=== PATIENT | female | born 1950 | race Caucasian/White ===

== ENCOUNTER 2017-08-15 07:33 | Day surgery (SDC) | payer BC ==
[2017-08-12 11:53] LABS: BASOPHILS % (AUTO) 1.2 % (0.0-5.0); EOSINOPHILS % (AUTO) 3.9 % (0.0-8.0); HEMATOCRIT 35.5 % (36-48); LYMPHOCYTES % (AUTO) 29.5 % (21.0-51.0); MEAN CORPUSCULAR HEMOGLOBIN 29.7 pg (27.0-33.0); MEAN CORPUSCULAR HGB CONC 33.3 g/dL (32.0-36.0); MEAN CORPUSCULAR VOLUME 89.3 fL (79-99); MONOCYTES % (AUTO) 9.4 % (3.0-13.0); PLATELET COUNT (AUTO) 243 K/uL (130-400); RED BLOOD CELL COUNT(AUTO) 3.97 MIL/uL (4.00-5.50); RED CELL DISTRIBUTION WIDTH 13.1 % (11.0-15.5); WHITE BLOOD COUNT (AUTO) 4.9 K/uL (4.8-10.8)
[2017-08-12 11:58] LABS: CREATININE 1.9 mg/dL (0.5-1.5); POTASSIUM 5.5 mmol/L (3.5-5.1)
[2017-08-12 12:01] LABS: APPEARANCE,URINE Clear (CLEAR); BILIRUBIN,URINE Negative (NEGATIVE); COLOR,URINE Yellow (YELLOW); GLUCOSE, URINE (UA) Negative (NEGATIVE); KETONES,URINE Negative (NEGATIVE); LEUKOCYTE ESTERASE ,URINE Trace (NEGATIVE); NITRATE,URINE Negative (NEGATIVE); OCCULT BLOOD,URINE Large (NEGATIVE); PROTEIN,URINE POS 1+ (NEGATIVE); UROBILINOGEN,URINE 0.2 mg/dL (0.2-1.0)
[2017-08-12 12:07] VITALS: BP 156/72
[2017-08-12 12:14] LABS: INR 0.95 (0.85-1.15)
[2017-08-12 12:22] LABS: BACTERIA,URINE Rare /HPF (None Seen); RBC,URINE 51-100 /HPF (0-1); SQUAMOUS EPITHELIAL CELL,UR Rare /HPF (0-2)
[~2017-08-15] VITALS: Ht 154.9 cm; Wt 72.8 kg
[2017-08-15] VITALS (16 sets, daily range): BP systolic 108–157; BP diastolic 56–92
[~2017-08-15 07:33] MED LIST: ASPI81TA40 PO; ATOR20TA65 PO; CALC0.253 PO; CHOL20004 PO; LISI2.5T2 PO
[2017-08-15 08:40] LABS: CREATININE 2.1 mg/dL (0.5-1.5); POTASSIUM 4.6 mmol/L (3.5-5.1)
[2017-08-15] MEDS ORDERED: LACTATED RINGERS 1000ML 1,000 ML IV ONE (08:40)
[2017-08-15] MEDS ORDERED: GENTAMICIN 80 MG/NS 100 ML PB 100 ML IV ONE (08:40)
[2017-08-15] MEDS ORDERED: CEFTRIAXONE SODIUM 1 GM ONE (08:40)
[2017-08-15] MEDS ORDERED: SODIUM CHLORIDE 0.9% 1000ML 1,000 ML IV ONE (09:07)
[2017-08-15] MEDS ORDERED: ISOVUE-370 50ML VIAL IV ONE (10:18)
[2017-08-15] MEDS ORDERED: DEXAMETHASONE SOD PHOSPHATE 10MG/ML 1ML VIAL ONE (11:42)
[2017-08-15] MEDS ORDERED: GLYCOPYRROLATE 0.2 MG/ML 5 ML VIAL ONE (11:42)
[2017-08-15] MEDS ORDERED: LIDOCAINE PF 2% 5ML ABBOJECT ONE (11:42)
[2017-08-15] MEDS ORDERED: PROPOFOL 10 MG/ML 20ML VIAL IV ONE (11:42)
[2017-08-15] MEDS ORDERED: MIDAZOLAM HCL 1 MG/ML 2ML VIAL ONE (11:42)
[2017-08-15] MEDS ORDERED: FENTANYL CITRATE PF 50 MCG/1 ML 2ML VIAL ONE (11:44)
[2017-08-15] MEDS ORDERED: MEPERIDINE-PF 25 MG/ML SYG ONE (13:15)
== END 2017-08-15 15:26 | disposition home or self-care (01) ==
LOC: DAH 07:33 → SUH 07:33
PROVIDERS: ATTEND Urology
DX: C67.5 Malignant neoplasm of bladder neck (principal); N13.39 Other hydronephrosis; E11.9 Type 2 diabetes mellitus without complications; E78.5 Hyperlipidemia, unspecified; E66.9 Obesity, unspecified; Z88.5 Allergy status to narcotic agent
CPT/HCPCS: 36415 ×2; 52332; 52354; 71045; 74420; 80048 ×2; 81001; 82948 ×2; 85025; 85610; 85730; 87088; 88305; 93005; A4218; A4354; A4358; A4510; C1758; C1769; C1894; C2617; J0696; J1100; J1580; J2001; J2175; J2250; J2704; J3010; J3490; J7030 ×2; J7120; Q9967

== ENCOUNTER → 2018-08-07 | Outpatient (CLI) | payer MEDICARE | END | disposition home or self-care (01) | LOC: OIH 09:46 | PROVIDERS: ATTEND Urology | DX: K57.30 Diverticulosis of large intestine without perforation or abscess without bleeding (principal); K46.9 Unspecified abdominal hernia without obstruction or gangrene; N32.89 Other specified disorders of bladder; Z90.49 Acquired absence of other specified parts of digestive tract | CPT/HCPCS: 74176 ==

== ENCOUNTER 2018-08-14 08:42 | Day surgery (SDC) | payer MEDICARE ==
[2018-08-12 15:45] VITALS: BP 167/82
[2018-08-12 15:52] LABS: BASOPHILS % (AUTO) 0.7 % (0.0-5.0); EOSINOPHILS % (AUTO) 2.7 % (0.0-8.0); HEMATOCRIT 34.6 % (36-48); LYMPHOCYTES % (AUTO) 17.3 % (21.0-51.0); MEAN CORPUSCULAR HEMOGLOBIN 29.9 pg (27.0-33.0); MEAN CORPUSCULAR HGB CONC 33.2 g/dL (32.0-36.0); MEAN CORPUSCULAR VOLUME 90.2 fL (79-99); MONOCYTES % (AUTO) 7.5 % (3.0-13.0); NEUTROPHILS % (AUTO) 71.8 % (40.0-77.0); PLATELET COUNT (AUTO) 281 K/uL (130-400); RED BLOOD CELL COUNT(AUTO) 3.84 MIL/uL (4.00-5.50); RED CELL DISTRIBUTION WIDTH 12.7 % (11.0-15.5); WHITE BLOOD COUNT (AUTO) 8.3 K/uL (4.8-10.8)
[2018-08-12 15:59] LABS: APPEARANCE,URINE Clear (CLEAR); BILIRUBIN,URINE Negative (NEGATIVE); COLOR,URINE Yellow (YELLOW); GLUCOSE, URINE (UA) Negative (NEGATIVE); KETONES,URINE Negative (NEGATIVE); LEUKOCYTE ESTERASE ,URINE Large (NEGATIVE); NITRATE,URINE Negative (NEGATIVE); OCCULT BLOOD,URINE Moderate (NEGATIVE); PH,URINE 5.5 (5.0-8.0); PROTEIN,URINE POS 2+ mg/dL (NEGATIVE); UROBILINOGEN,URINE 0.2 mg/dL (0.2-1.0)
[2018-08-12 16:25] LABS: POTASSIUM 5.3 mmol/L (3.5-5.1)
[2018-08-12 16:36] LABS: BACTERIA,URINE Few /HPF (None Seen); SQUAMOUS EPITHELIAL CELL,UR None Seen /HPF (0-2); WBC,URINE >100 /HPF (0-1)
--- NOTE | 2018-08-13 14:35 | NUR ---
ABNORMAL LAB: FAXED ABNORMAL BMP TO DR. RODRIGUEZ'S OFFICE. AWAITING CALL.
--- NOTE | 2018-08-13 14:44 | NUR ---
CONSULT: DR. CARTER NOTIFIED OF ABNORMAL K: 5.3 AND CREAT: 30, VIEWED EKG, NO ORDERS GIVEN.
[~2018-08-14] VITALS: Ht 154.9 cm; Wt 70.9 kg
[2018-08-14] VITALS (18 sets, daily range): BP systolic 115–164; BP diastolic 61–88
[2018-08-14] MEDS: CEFTRIAXONE SODIUM 1 GM IVP SCH ×2 (06:00→11:10)
[~2018-08-14 08:42] MED LIST changes: +ASPI-555 PO; -ASPI81TA40 PO; -CALC0.253 PO; +GENTAMICIN 80 MG/NS 100 ML PB 100 ML IV SCH; -LISI2.5T2 PO
[2018-08-14] MEDS ORDERED: LACTATED RINGERS 1000ML 1,000 ML IV ONE (09:14)
[2018-08-14] MEDS ORDERED: IOHEXOL-350 50ML VIAL IV ONE (09:17)
[2018-08-14] MEDS ORDERED: DEXAMETHASONE SOD PHOSPHATE 10MG/ML 1ML VIAL ONE (11:13)
[2018-08-14] MEDS ORDERED: LIDOCAINE PF 2% 5ML ABBOJECT ONE (11:13)
[2018-08-14] MEDS ORDERED: FENTANYL CITRATE PF 50 MCG/1 ML 2ML VIAL ONE (11:13)
[2018-08-14] MEDS ORDERED: MIDAZOLAM HCL 1 MG/ML 2ML VIAL ONE (11:13)
[2018-08-14] MEDS ORDERED: ONDANSETRON HCL 4 MG/2 ML VIAL ONE (11:13)
[2018-08-14] MEDS ORDERED: PROPOFOL 10 MG/ML 20ML VIAL IV ONE (11:13)
--- NOTE | 2018-08-14 13:35 | NUR ---
RECEIVE PT RECEIVED FROM PACU VIA STRETCHER AWAKE ALERT ORIENTED X3. STABLE, NO COMPLAINTS MADE. HARRIS CATH [address] DRAINING PINKISH URINE, NO CLOTS NOTED. CALL [facility]ONS[facility] WITHIN REACH. WILL CALL POST HARRIS CATH REMOVAL.
--- NOTE | 2018-08-14 13:45 | NUR ---
DC HARRIS HARRIS CATHETER 18 FR DISCONTINUED WITHOUT ANY COMPLICATIONS. PT TOLERATED WELL.
--- NOTE | 2018-08-14 14:00 | NUR ---
RX TYLENOL WITH CODEINE PT STATES SHE CANNOT TOLERATE CODEINE, SHE GETS SEVERE VOMITING. CALLED AND NOTIFIED DR. RODRIGUEZ. PER DR. RODRIGUEZ, PT MAY TAKE OVER THE COUNTER TYLENOL OR MOTRIN. INSTRUCTED PT AND . BOTH VERBALIZED UNDERSTANDING.
--- NOTE | 2018-08-14 14:20 | NUR ---
DISCHARGE PT DISCHARGED VIA WHEELCHAIR WITH . PT STABLE. NO COMPLAINTS MADE. PT VOIDED WITHOUT ANY PROBLEMS PRIOR TO DISCHARGE, VERY LIGHT PINK URINE, NO CLOTS NOTED. DISCHARGE INSTRUCTIONS GIVEN TO AND PT, VERBALIZED UNDERSTANDING.
== END 2018-08-14 14:20 | disposition home or self-care (01) ==
LOC: DAH 08:42
PROVIDERS: ATTEND Urology
DX: N13.30 Unspecified hydronephrosis (principal); E11.9 Type 2 diabetes mellitus without complications; E78.5 Hyperlipidemia, unspecified; Z98.890 Other specified postprocedural states; Z79.899 Other long term (current) drug therapy; I10 Essential (primary) hypertension; Z85.51 Personal history of malignant neoplasm of bladder
CPT/HCPCS: 36415; 52204; 52332; 52354; 74420; 80048; 81001; 82948; 85025; 87088; 88305; 88342; 93005; A4354; A4358; A4600; C1758; C1769; C2617; J0696; J1100; J1580; J2001; J2250; J2405; J2704; J3010; J7030; J7120; Q9967

== ENCOUNTER 2021-01-19 12:56 | Observation (INO) | payer MEDICARE, OTHER ==
[~2021-01-19] VITALS: Ht 152.4 cm; Wt 48.1 kg
[2021-01-19] MEDS: 0.9%NACL 1000ML 1,000 ML IV SCH ×2 (08:00→14:15)
[~2021-01-19 12:56] MED LIST changes: -ASPI-555 PO; +ASPI-556 PO; -GENTAMICIN 80 MG/NS 100 ML PB 100 ML IV SCH
[2021-01-19] MEDS ORDERED: MORPHINE 2 MG SYG IVP PRN (13:30)
[2021-01-19] MEDS ORDERED: ONDANSETRON 4MG INJ IVP PRN (13:30)
[2021-01-19 14:01] LABS: BASOPHILS % (AUTO) 0.4 % (0.0-5.0); EOSINOPHILS % (AUTO) 1.7 % (0.0-8.0); HEMATOCRIT 23.9 % (36-48); LYMPHOCYTES % (AUTO) 6.4 % (21.0-51.0); MEAN CORPUSCULAR HEMOGLOBIN 29.3 pg (27.0-33.0); MEAN CORPUSCULAR HGB CONC 29.7 g/dL (32.0-36.0); MEAN CORPUSCULAR VOLUME 98.8 fL (79-99); MONOCYTES % (AUTO) 2.1 % (3.0-13.0); NEUTROPHILS % (AUTO) 74.1 % (40.0-77.0); PLATELET COUNT (AUTO) 188 K/uL (130-400); RED BLOOD CELL COUNT(AUTO) 2.42 MIL/uL (4.00-5.50); RED CELL DISTRIBUTION WIDTH 16.5 % (11.0-15.5); WHITE BLOOD COUNT (AUTO) 2.4 K/uL (4.8-10.8)
[2021-01-19 14:21] LABS: ALBUMIN 2.5 g/dL (3.5-5.0); BILIRUBIN,TOTAL 0.2 mg/dL (0.2-1.0); CREATININE 5.4 mg/dL (0.5-1.5); TOTAL PROTEIN, SERUM 7.3 g/dL (6.0-8.3)
[2021-01-19 14:24] LABS: APPEARANCE,URINE TURBID (CLEAR); BILIRUBIN,URINE MODERATE (NEGATIVE); GLUCOSE, URINE (UA) 100 mg/dL (NEGATIVE); KETONES,URINE 15 mg/dL (NEGATIVE); LEUKOCYTE ESTERASE ,URINE LARGE (NEGATIVE); NITRATE,URINE POSITIVE (NEGATIVE); OCCULT BLOOD,URINE LARGE (NEGATIVE); PH,URINE 6.5 (5.0-8.0); PROTEIN,URINE 100 mg/dL (NEGATIVE)
[2021-01-19 14:25] VITALS: BP 144/81
[2021-01-19 14:25] LABS: COLOR,URINE RED (YELLOW)
[2021-01-19 14:27] LABS: BACTERIA,URINE Few /HPF (None Seen); RBC,URINE TNTC /HPF (0-1); SQUAMOUS EPITHELIAL CELL,UR Rare /HPF (0-2); WBC,URINE >100 /HPF (0-1)
[2021-01-19 14:49] LABS: POTASSIUM 6.1 mmol/L (3.5-5.1)
[2021-01-19 14:51] LABS: BASOPHILS % (MANUAL) 1 % (0-2); EOSINOPHILS % (MANUAL) 2 % (1-6); LYMPHOCYTES % (MANUAL) 7 % (22-44); MONOCYTES % (MANUAL) 1 % (2-9); SEGMENTED NEUTROPHILS % 89 % (40-70)
[2021-01-19 14:52] LABS: MAN.DIFF COMMENT-IMPRESSION MANUAL DIFFERENTIAL; PLATELET MORPHOLOGY COMMENT ADEQUATE
[2021-01-19] MEDS ORDERED: KAYEXALATE 15GM/60ML PO ONE (16:00)
[2021-01-19] MEDS: CEFEPIME HCL 1 GM VIAL IVP SCH (16:51)
[2021-01-19] MEDS ORDERED: NA ZIRCON CYCLOSIL(LOKELMA 10GM) PO ONE (18:30)
[2021-01-19 19:00] VITALS: BP 141/82
[2021-01-19] MEDS ORDERED: 0.9% NACL 500ML IV.SOLN 500 ML IV ONE (23:05)
[2021-01-20] VITALS: BP 130/78
[2021-01-20] MEDS: CEFEPIME HCL 1 GM VIAL IVP SCH ×2 (02:21→13:15)
[2021-01-20 04:00] VITALS: BP 149/86
[2021-01-20 08:08] VITALS: BP 151/97
[2021-01-20] MEDS ORDERED: SODIUM BICARB 8.4% 50ML SYRING 150 MEQ in DEXTROSE 5%-WATER 1,000 ML IVP SCH (10:46)
[2021-01-20] MEDS ORDERED: FLUCONAZOLE 100 MG TAB PO SCH (10:46)
[2021-01-20 11:56] VITALS: BP 166/80
[2021-01-20 13:45] LABS: HEMATOCRIT 35.8 % (36-48); MEAN CORPUSCULAR HEMOGLOBIN 30.2 pg (27.0-33.0); MEAN CORPUSCULAR HGB CONC 32.7 g/dL (32.0-36.0); MEAN CORPUSCULAR VOLUME 92.5 fL (79-99); PLATELET COUNT (AUTO) 163 K/uL (130-400); RED BLOOD CELL COUNT(AUTO) 3.87 MIL/uL (4.00-5.50)
[2021-01-20 13:55] LABS: CREATININE 5.2 mg/dL (0.5-1.5); POTASSIUM 5.4 mmol/L (3.5-5.1)
[2021-01-20 16:23] VITALS: BP 157/89
[2021-01-21] MEDS ORDERED: FLUCONAZOLE 100 MG TAB PO SCH (09:00)
== END 2021-01-20 17:00 | disposition home or self-care (01) ==
LOC: EDH 12:56 → INTOOBSV 13:00 → OBSVTOIN 13:00 → EDHIP 13:00 → 3BH 18:42
PROVIDERS: ADMIT Internal Medicine Hematology & Oncology; ATTEND Internal Medicine Hematology & Oncology
DX: D64.9 Anemia, unspecified (principal); N17.9 Acute kidney failure, unspecified; E87.5 Hyperkalemia; N12 Tubulo-interstitial nephritis, not specified as acute or chronic; N13.9 Obstructive and reflux uropathy, unspecified; R11.2 Nausea with vomiting, unspecified; E87.2 Acidosis; N18.9 Chronic kidney disease, unspecified; A41.9 Sepsis, unspecified organism; C67.9 Malignant neoplasm of bladder, unspecified; D61.818 Other pancytopenia; R62.7 Adult failure to thrive; Z85.51 Personal history of malignant neoplasm of bladder; Z87.440 Personal history of urinary (tract) infections; Z90.710 Acquired absence of both cervix and uterus; Z79.899 Other long term (current) drug therapy; Z98.890 Other specified postprocedural states
CPT/HCPCS: 36415 ×2; 36430 ×2; 80048; 80053; 81001; 85025; 85027; 86850; 86900; 86901; 86923 ×2; 87077; 87088; 87186; 96361; 96374; 96375; 96376; G0378 ×19; G0379; J0692 ×3; J2405; J3490; J7040; J7070; P9016 ×3